=== PATIENT | female | born 1990 | race Caucasian/White ===

== ENCOUNTER → 2016-03-29 | Outpatient (CLI) | payer OTHER ==
[~2016-03-29] VITALS: Ht 157.5 cm; Wt 63.0 kg
[~2016-03-29] MED LIST: BENTYL20 MG PO; ZANTAC75 M1 PO; ZOFRAN4 MG PO
== END | disposition home or self-care (01) ==
LOC: AMB 10:30
DX: R10.13 Epigastric pain (principal); K29.70 Gastritis, unspecified, without bleeding; R14.0 Abdominal distension (gaseous); D72.1 Eosinophilia; K21.9 Gastro-esophageal reflux disease without esophagitis
CPT/HCPCS: 88305; 88342 TC; B4087; J2250; J3010

== ENCOUNTER 2016-06-05 13:54 | Emergency (ER) | payer OTHER ==
[~2016-06-05] VITALS: Ht 157.5 cm; Wt 62.0 kg
[2016-06-05 14:33] LABS: HEMATOCRIT 43.2 % (36.0-46.0); MCH 31.2 PG (29.0-34.0); MCHC 34.5 G/DL (30.0-36.0); MCV 90.6 FL (83-99); MEAN PLAT.VOLUME 11.1 uM^3 (9.5-12.4); PLATELET COUNT 280 K/uL (156-360); RBC DIS.WIDTH-CV 11.9 % (11.8-14.6); RBC DIS.WIDTH-SD 39.4 % (39-53); RED BLOOD COUNT 4.77 M/uL (3.80-5.20); WHITE BLOOD COUNT 10.1 K/uL (4.1-10.2)
[2016-06-05 14:41] LABS: CHLORIDE 104 mEq/L (99-109); POTASSIUM 4.4 mEq/L (3.7-5.4); SODIUM 137 mEq/L (136-147)
[2016-06-05 14:43] LABS: GLUCOSE 78 mg/dL (70-99)
[2016-06-05 14:45] LABS: ANION GAP 9 MEQ/L (2-14)
[2016-06-05 14:46] LABS: SERUM ETHYL ALCOHOL < 10 mg/dL
[2016-06-05 14:47] LABS: GFR ESTIMATE (CALCULATED) > 59 mL/min/
[2016-06-05 14:48] LABS: UREA NITROGEN (BUN) 14 mg/dL (9-23)
[2016-06-05 14:57] LABS: QUANTITATIVE HCG < 4.0 MIU/ML
[2016-06-05] MEDS ORDERED: ALPRAZOLAM0.25 M2 PO (17:07)
[2016-06-05] MEDS ORDERED: EFFEXOR75 MG PO (17:07)
[2016-06-05 17:35] LABS: AMPHETAMINE NEGATIVE (500 ng/mL); BARBITURATES NEGATIVE (200 ng/mL); BENZODIAZEPINES PRESUMPTIVE POSITIVE (150 ng/mL); COCAINE NEGATIVE (150 ng/mL); METHADONE NEGATIVE (200 ng/mL); METHAMPHETAMINE NEGATIVE (500 ng/mL); OPIATES (MORPHINE) NEGATIVE (100 ng/mL); OXYCODONE NEGATIVE (100 ng/mL); PHENCYCLIDINE NEGATIVE (25 ng/mL); PROPOXYPHENE NEGATIVE (300 ng/mL); THC CANNABINOIDS NEGATIVE (50 ng/mL); TRICYCLIC ANTIDEPRESSANTS NEGATIVE (300 ng/mL)
[2016-06-05 17:36] LABS: ADD MEDTOX COMMENT Y; INTERNAL CONTROLS VALID? YES
[2016-06-05 18:11] LABS: BENZODIAZEPINES, URINE SCREEN POSITIVE (200 ng/mL)
[2016-06-05 18:21] VITALS: BP 109/77
== END 2016-06-05 18:27 | disposition home or self-care (01) ==
LOC: EME 13:54
DX: F41.9 Anxiety disorder, unspecified (principal); F32.9 Major depressive disorder, single episode, unspecified; F17.200 Nicotine dependence, unspecified, uncomplicated
CPT/HCPCS: 80048; 84702; 84999; 85027; 99281; 99284; G0480

== ENCOUNTER 2016-06-19 11:23 | Emergency (ER) | payer OTHER ==
[~2016-06-19] VITALS: Ht 157.5 cm; Wt 62.1 kg
[~2016-06-19 11:23] MED LIST changes: +ALPRAZOLAM0.25 M2 PO; +EFFEXOR75 MG PO
[2016-06-19] MEDS ORDERED: LATUDA20 MG PO (12:17)
[2016-06-19 12:25] VITALS: BP 127/89
== END 2016-06-19 12:32 | disposition home or self-care (01) ==
LOC: EME 11:23
DX: F31.32 Bipolar disorder, current episode depressed, moderate (principal); F17.200 Nicotine dependence, unspecified, uncomplicated
CPT/HCPCS: 90839; 99281; 99285